=== PATIENT | male | born 2000 | race Caucasian/White ===

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

== ENCOUNTER 2025-02-11 23:48 | Emergency (ER) | payer BC, OTHER ==
[~2025-02-11] VITALS: Ht 177.8 cm; Wt 122.5 kg
[2025-02-12] MEDS ORDERED: Dexamethasone Sod Phos 10 MG/ML 1ML VIAL IV ONE (00:50)
[2025-02-12] MEDS ORDERED: NS 1,000 ML IV SCH (00:55)
[2025-02-12 01:41] VITALS: BP 105/66
== END 2025-02-12 00:50 | disposition home or self-care (01) ==
LOC: ER 23:48
DX: T78.40XA Allergy, unspecified, initial encounter (principal); Z79.899 Other long term (current) drug therapy; Z91.030 Bee allergy status
CPT/HCPCS: 96374; 96375; 99284-25; J1100; J7030